=== PATIENT | female | born 1970 | race Asian ===

== ENCOUNTER 2021-12-01 10:09 | Outpatient (CLI) | payer OTHER | END 2021-12-01 10:10 | disposition home or self-care (01) | LOC: BICRAD 10:09 | PROVIDERS: ATTEND Family Medicine | DX: R76.12 Nonspecific reaction to cell mediated immunity measurement of gamma interferon antigen response without active tuberculosis (principal) | CPT/HCPCS: 71045 ==

== ENCOUNTER 2023-02-08 15:55 | Outpatient (CLI) | payer OTHER | END 2023-02-08 15:56 | disposition home or self-care (01) | LOC: BICRAD 15:55 | PROVIDERS: ATTEND Family Medicine | DX: R76.12 Nonspecific reaction to cell mediated immunity measurement of gamma interferon antigen response without active tuberculosis (principal) | CPT/HCPCS: 71046 ==